=== PATIENT | male | born 1965 | race Caucasian/White ===

== ENCOUNTER 2023-02-10 14:00 | Outpatient (RCR) | payer OTHER, SELFPAY | END 2023-05-16 14:45 | disposition home or self-care (01) | PROVIDERS: PCP Family Medicine; Visit Provider Family Medicine | DX: M70.61 Trochanteric bursitis, right hip (principal); M54.16 Radiculopathy, lumbar region; M76.891 Other specified enthesopathies of right lower limb, excluding foot; Z51.89 Encounter for other specified aftercare | CPT/HCPCS: 97110; 97140; 97162 ==

== ENCOUNTER 2023-10-17 16:01 | Outpatient (CLI) | payer OTHER, SELFPAY | END 2023-10-17 16:02 | disposition home or self-care (01) | PROVIDERS: PCP Family Medicine; Visit Provider Family Medicine | DX: Z00.00 Encounter for general adult medical examination without abnormal findings (principal); I10 Essential (primary) hypertension; E78.2 Mixed hyperlipidemia; Q98.4 Klinefelter syndrome, unspecified; Z12.5 Encounter for screening for malignant neoplasm of prostate | CPT/HCPCS: 80048; 80061; 84403; 84443; 84460; G0103 ==

== ENCOUNTER 2023-11-20 22:29 | Emergency (ER) | payer OTHER, SELFPAY ==
[2023-11-20 22:36] VITALS: BP 164/97; PULSE 94; RESP 20; TEMP 36.6; O2SAT 98; BMI 40.6
--- NOTE | 2023-11-20 22:43 | CRLHL7_ITS ---
For Patients: As a result of the Century Cures Act, medical imaging exams and procedure reports are released immediately into your electronic medical record. You may view this report before your referring provider. If you have questions, please contact your health care provider. INDICATION: Right wrist pain, fall. TECHNIQUE: Right wrist 3 views. Permanently recorded images are archived. COMPARISON: None. FINDINGS: No acute fracture or aggressive osseous lesion. Well corticated ossific density distal to the ulnar styloid, likely sequela of an old fracture or unfused accessory ossicle. Alignment is normal. The joint spaces are preserved. The soft tissues are unremarkable. IMPRESSION: No evidence of an acute bony abnormality. If there is pain at the anatomic snuffbox, recommend conservative management with reimaging in 7-10 days. Dictated by Jarrett Barrera MD @ 11/20/2023 11:13:07 PM (Electronically Signed)
--- NOTE | 2023-11-20 22:43 | CRLHL7_ITS ---
For Patients: As a result of the Century Cures Act, medical imaging exams and procedure reports are released immediately into your electronic medical record. You may view this report before your referring provider. If you have questions, please contact your health care provider. Indication: Fall with left shoulder pain Technique: Three views left shoulder Comparison: None Findings: Bones: Alignment is normal. No fractures or bone lesions. Joint spaces: Unremarkable. Soft tissues: Unremarkable. Impression: Negative. Dictated by Kianna Cavazos MD @ 11/20/2023 11:06:53 PM (Electronically Signed)
--- NOTE | 2023-11-20 22:44 | ED_ITS ---
HPI - Fall General Date Seen: 11/20/23 Chief Complaint: Fall/Minor Trauma Stated Complaint: fall, left shoulder pain Time Seen by Provider: 11/20/23 22:33 Source: patient Mode of arrival: ambulatory Limitations: no limitations History of Present Illness HPI Narrative: Patient is a 58-year-old male with no pertinent medical problems presenting to the emergency department for left shoulder and right wrist pain. 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 He denies left shoulder and continue to hold onto the handle with his right hand and this twisted his right wrist. Denies any other injuries. Denies hitting his head. He went home to see if you feel better but says the pain is not getting any better so he came back to be evaluated in the emergency department. Did take ibuprofen at home with some improvement. Is only able to lift his left shoulder up about 20? before pain starts. Denies any other concerns. Denies numbness. Related Data Home Medications Medication Instructions Recorded Confirmed nicotine (polacrilex) 4 mg gum mg PO 05/01/23 10/17/23 Previous Rx's Medication Instructions Recorded albuterol sulfate 90 mcg/actuation 2 inh inhalation Q4-6H PRN 10/19/23 aerosol inhaler shortness of breath or wheezing #8.5 grams atorvastatin 20 mg tablet 20 mg PO DAILY #90 tabs 10/19/23 lisinopril 5 mg tablet 5 mg PO DAILY #90 tabs 10/19/23 omeprazole 20 mg capsule,delayed 20 mg PO DAILY #90 caps 10/19/23 release sertraline 100 mg tablet 100 mg PO DAILY #90 tabs 10/19/23 sildenafil 100 mg tablet 100 mg PO DAILY PRN sexual 10/19/23 activity #10 tabs tamsulosin 0.4 mg capsule 0.4 mg PO DAILY #90 caps 10/19/23 testosterone cypionate 200 mg/mL 170 mg (0.85 mL) IM .Q10 Days #10 10/19/23 intramuscular oil mL Allergies Allergy/AdvReac Type Severity Reaction Status Date / Time amoxicillin [From Augmentin] Allergy Intermediate Hives Verified 10/23/23 09:50 aspirin Allergy Intermediate Hives Verified 10/23/23 09:50 clavulanic acid Allergy Intermediate Hives Verified 10/23/23 09:50 [From Augmentin] lactose Allergy Mild Rash Verified 10/23/23 09:52 Review of Systems Narrative: Pertinent systems reviewed and were negative PFSH PFS Medical History Environmental allergies ?Z91.09 - Other allergy status, other than to drugs and biological substances (ICD-10) RSV (respiratory syncytial virus infection) (10/14/23) ?B33.8 - Other specified viral diseases (ICD-10) Erectile dysfunction ?N52.9 - Male erectile dysfunction, unspecified (ICD-10) Primary hypertension ?I10 - Essential (primary) hypertension (ICD-10) BPH (benign prostatic hyperplasia) ?N40.0 - Benign prostatic hyperplasia without lower urinary tract symptoms (ICD-10) Polycystic kidney disease ?Q61.3 - Polycystic kidney, unspecified (ICD-10) Tobacco abuse ?Z72.0 - Tobacco use (ICD-10) Major depression, recurrent ?F33.9 - Major depressive disorder, recurrent, unspecified (ICD-10) Generalized anxiety disorder ?F41.1 - Generalized anxiety disorder (ICD-10) Mixed hyperlipidemia ?E78.2 - Mixed hyperlipidemia (ICD-10) GERD (gastroesophageal reflux disease) ?K21.9 - Gastro-esophageal reflux disease without esophagitis (ICD-10) History of colonic polyps ?Z86.010 - Personal history of colonic polyps (ICD-10) Varicose veins of both lower extremities with pain ?I83.813 - Varicose veins of bilateral lower extremities with pain (ICD-10) Umbilical hernia (2015) ?K42.9 - Umbilical hernia without obstruction or gangrene (ICD-10) Klinefelter's syndrome ?Q98.4 - Klinefelter syndrome, unspecified (ICD-10) Surgical History History of surgery on lower extremity (04/25/17) ?Z98.890 - Other specified postprocedural states (ICD-10) Family History Father Heart disease Myocardial infarction Bladder cancer Paternal Grandfather Bladder cancer Other Family history of colon cancer 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[employer], , no kids, smoker, chews, no EtOH What is your current living situation?: I presently have a place to live Problems where you live: mold, lead paint or pipes and water leaks In the past 12 months, utilities in danger of being shut off: no In past 12 months, lack of transportation kept you from medical appts, meetings, work, or getting things needed for daily living: no In the past 12 mos, have been you worried that your food would run out before you had money to buy more?: never true In the past 12 mos, the food you bought just didn't last and you didn't have money to buy more?: sometimes true Smoking Status: Never smoker Second hand tobacco smoke exposure: No How often do you have a drink containing alcohol: never AUDIT-C Alcohol total score: 0 Non-prescribed substance use: denies use How often does anyone, including family, friends and others, physically hurt you : never How often does anyone, including family, friends and others, insult or talk down to you: sometimes How often does anyone, including family, friends and others, threaten you with harm: never How often does anyone, including family, friends and others, scream or curse at you: sometimes Little interest or pleasure in doing things: not at all Feeling down, depressed, or hopeless: not at all Exam Narrative: Exam Narrative: Const: Well-nourished, Well-developed, in mild distress Eyes: PERRL, no conjunctival injection, and symmetrical lids HENT: Atraumatic external nose and ears. Moist mucous membranes. MSK:Extremities w/o deformity, decreased active range of motion and passive range of motion to left shoulder secondary to pain. Full range of motion to right wrist and rest of his extremities Skin: Warm, Dry. No rashes or lesions. Neuro: Normal Muscle tone, No focal neurological deficits. Psych: Awake, Alert, & Oriented x3. Appropriate mood and affect. Const: Vital Signs, click to edit/add: Vital Signs - 24 hr 11/20/23 22:36 Temperature 97.9 F Pulse Rate [Pulse Oximeter] 94 Respiratory Rate 20 Blood Pressure [Ri ght Upper Arm] 164/97 H Pulse Oximetry 98 Oxygen Delivery Me thod Room Air Course Vital Signs Vital signs: Initial Vital Signs Temperature 97.9 F 11/20/23 22:36 Temperature Source Temporal Artery Scan 11/20/23 22:36 Pulse Rate 94 11/20/23 22:36 Respiratory Rate 20 11/20/23 22:36 Blood Pressure 164/97 H 11/20/23 22:36 Blood Pressure Mean 119 H 11/20/23 22:36 Blood Pressure Position Sitting 11/20/23 22:36 Pulse Oximetry 98 11/20/23 22:36 Oxygen Delivery Method Room Air 11/20/23 22:36 Vital Signs Temperature 97.9 F 11/20/23 22:36 Pulse Rate 94 11/20/23 22:36 Respiratory Rate 20 11/20/23 22:36 Blood Pressure 164/97 H 11/20/23 22:36 Pulse Oximetry 98 11/20/23 22:36 Oxygen Delivery Method Room Air 11/20/23 22:36 Temperature 97.9 F 11/20/23 22:36 Pulse Rate 94 11/20/23 22:36 Respiratory Rate 20 11/20/23 22:36 Blood Pressure 164/97 H 11/20/23 22:36 Pulse Oximetry 98 11/20/23 22:36 Oxygen Delivery Method Room Air 11/20/23 22:36 MDM - Fall MDM Narrative Medical decision making narrative: Patient is a 58-year-old male presenting to the emergency department after injury here at work. Is complaining male left shoulder and right wrist pain. We will order x-rays of these areas is not requesting pain medication at this t daniel. X-rays were done and showed no concerning abnormalities as reviewed by myself and the radiologist. Symptoms are most likely due to a muscle strain. There is no tenderness at the anatomical snuffbox. Patient is otherwise doing walking discharged home. He is agreeable to this plan Imaging Data X-ray left shoulder: Radiologist's impression: Negative. Dictated by Kianna Cavazos MD @ 11/20/2023 11:06:53 PM X-ray right wrist: Radiologist's impression: No evidence of an acute bony abnormality. If there is pain at the anatomic snuffbox, recommend conservative management with reimaging in 7-10 days. Dictated by Jarrett Barrera MD @ 11/20/2023 11:13:07 PM Discharge Plan Discharge Clinical Impression: Left shoulder strain Qualifiers: Encounter type: initial encounter Qualified Code(s): S46.912A - Strain of unspecified muscle, fascia and tendon at shoulder and upper arm level, left arm, initial encounter Patient Disposition: Home, Self-Care Condition: Stable Instructions: Rotator Cuff Injury Exercises (DC) Additional Instructions: Follow-up with your primary care provider. Return to emergency department for new or worsening symptoms. Use Tylenol and ibuprofen for pain Prescriptions: No Action nicotine (polacrilex) 4 mg gum PO albuterol sulfate 90 mcg/actuation HFA aerosol inhaler 2 inh inhalation Q4-6H PRN (Reason: shortness of breath or wheezing) Qty: 8.5 5RF atorvastatin 20 mg tablet 20 mg PO DAILY Qty: 90 3RF tamsulosin 0.4 mg capsule 0.4 mg PO DAILY Qty: 90 3RF sertraline 100 mg tablet 100 mg PO DAILY Qty: 90 3RF lisinopril 5 mg tablet 5 mg PO DAILY Qty: 90 3RF omeprazole 20 mg capsule,delayed release(DR/EC) 20 mg PO DAILY Qty: 90 3RF sildenafil 100 mg tablet 100 mg PO DAILY PRN (Reason: sexual activity) Qty: 10 5RF testosterone cypionate 200 mg/mL oil 170 mg IM .Q10 Days Qty: 10 3RF Follow Up/Referrals: Ryder Koenig MD [Primary Care Provider] - Stand Alone Forms: [employer] Info Instructions
[2023-11-20 23:25] VITALS: BP 164/97; PULSE 94; RESP 20; TEMP 36.6; O2SAT 98
== END 2023-11-20 23:43 | disposition home or self-care (01) ==
PROVIDERS: Emergency Provider Student in an Organized Health Care Education/Training Program; PCP Family Medicine
DX: S46.912A Strain of unspecified muscle, fascia and tendon at shoulder and upper arm level, left arm, initial encounter (principal)
CPT/HCPCS: 73030; 73110; 99282; 99283

== ENCOUNTER 2023-12-07 11:14 | Emergency (ER) | payer OTHER, SELFPAY ==
[2023-12-07 11:25] VITALS: BP 160/93; PULSE 103; RESP 18; TEMP 36.9; O2SAT 95; BMI 40.6
--- NOTE | 2023-12-07 11:30 | ED.GENADULT ---
HPI - General Adult General Time Seen by Provider: 11:33 Date Seen: 12/07/23 Chief complaint: Dizziness/Vertigo Stated complaint: dizziness Time Seen by Provider: 12/07/23 11:18 Source: patient, RN notes reviewed and old records reviewed Mode of arrival: ambulatory Limitations: no limitations History of Present Illness HPI narrative: Faustino is a 58-year-old male coming in with dizziness for about a week now. He had a bad headache when night, used a massage done on his neck and then went to bed. The next morning he woke up feeling dizzy. Describes spinning sensation whenever he lies back or turns his head to either side. He describes feeling imbalanced. He feels like his vision is blurry in both eyes. He states he worked with his chiropractor but denies any manipulations or adjustments. He has been trying meclizine. His headache is improved. No chest pain. No focal weakness. He does state he has a visit with his eye doctor tomorrow for testing of his eyes. He is described both blurry and double vision to me, the double vision seems to come when he lies down and gets spinning sensation. It sounds as if he is getting a dizzy sensation as well as a spinning sensation when he lies back or turns his head. He thinks he may have done something with the massage done. He denies any neck pain currently. He has never had a prior history of stroke or vascular issues. He has had no falls because of this. Denies any history of prior vertigo. He was seen in clinic on December [address] Ch. He had had symptoms for 3 days at that visit. He was given meclizine 25 mg daily for 7 days. Related Data Home Medications Medication Instructions Recorded Confirmed nicotine (polacrilex) 4 mg gum mg PO 05/01/23 12/06/23 ibuprofen 200 mg tablet 800 mg PO Q6H PRN 11/28/23 12/06/23 Previous Rx's Medication Instructions Recorded albuterol sulfate 90 mcg/actuation 2 inh inhalation Q4-6H PRN 10/19/23 aerosol inhaler shortness of breath or wheezing #8.5 grams atorvastatin 20 mg tablet 20 mg PO DAILY #90 tabs 10/19/23 lisinopril 5 mg tablet 5 mg PO DAILY #90 tabs 10/19/23 omeprazole 20 mg capsule,delayed 20 mg PO DAILY #90 caps 10/19/23 release sertraline 100 mg tablet 100 mg PO DAILY #90 tabs 10/19/23 sildenafil 100 mg tablet 100 mg PO DAILY PRN sexual 10/19/23 activity #10 tabs tamsulosin 0.4 mg capsule 0.4 mg PO DAILY #90 caps 10/19/23 testosterone cypionate 200 mg/mL 170 mg (0.85 mL) IM .Q10 Days #10 10/19/23 intramuscular oil mL oxycodone 5 mg tablet 5 mg PO Q6H PRN pain #20 tabs 11/28/23 meclizine 25 mg tablet 25 mg PO QDAY PRN dizziness #7 tabs 12/03/23 diazepam 5 mg tablet (Valium) 5 mg PO QHS #5 tabs 12/07/23 meclizine 25 mg tablet 25 mg PO TID #20 tabs 12/07/23 prednisone 20 mg tablet 20 mg PO DAILY #5 tabs 12/07/23 Allergies Allergy/AdvReac Type Severity Reaction Status Date / Time amoxicillin [From Augmentin] Allergy Intermediate Hives Verified 12/06/23 13:22 aspirin Allergy Intermediate Hives Verified 12/06/23 13:22 clavulanic acid Allergy Intermediate Hives Verified 12/06/23 13:22 [From Augmentin] lactose Allergy Mild Rash Verified 12/06/23 13:22 Review of Systems Status of ROS: Reports: 6 or more systems reviewed and unremarkable except as noted in History and below [facility] Medical History Environmental allergies ?Z91.09 - Other allergy status, other than to drugs and biological substances (ICD-10) RSV (respiratory syncytial virus infection) (10/14/23) ?B33.8 - Other specified viral diseases (ICD-10) Erectile dysfunction ?N52.9 - Male erectile dysfunction, unspecified (ICD-10) Primary hypertension ?I10 - Essential (primary) hypertension (ICD-10) BPH (benign prostatic hyperplasia) ?N40.0 - Benign prostatic hyperplasia without lower urinary tract symptoms (ICD-10) Polycystic kidney disease ?Q61.3 - Polycystic kidney, unspecified (ICD-10) Tobacco abuse ?Z72.0 - Tobacco use (ICD-10) Major depression, recurrent ?F33.9 - Major depressive disorder, recurrent, unspecified (ICD-10) Generalized anxiety disorder ?F41.1 - Generalized anxiety disorder (ICD-10) Mixed hyperlipidemia ?E78.2 - Mixed hyperlipidemia (ICD-10) GERD (gastroesophageal reflux disease) ?K21.9 - Gastro-esophageal reflux disease without esophagitis (ICD-10) History of colonic polyps ?Z86.010 - Personal history of colonic polyps (ICD-10) Varicose veins of both lower extremities with pain ?I83.813 - Varicose veins of bilateral lower extremities with pain (ICD-10) Umbilical hernia (2015) ?K42.9 - Umbilical hernia without obstruction or gangrene (ICD-10) Klinefelter's syndrome ?Q98.4 - Klinefelter syndrome, unspecified (ICD-10) Surgical History History of surgery on lower extremity (04/25/17) ?Z98.890 - Other specified postprocedural states (ICD-10) Family History Father Heart disease Myocardial infarction Bladder cancer Paternal Grandfather Bladder cancer Other Family history of colon cancer Social History Narrative: [employer] [facility], , no kids, smoker, chews, no EtOH What is your current living situation?: I presently have a place to live Problems where you live: mold, lead paint or pipes and water leaks In the past 12 months, utilities in danger of being shut off: no In past 12 months, lack of transportation kept you from medical appts, meetings, work, or getting things needed for daily living: no In the past 12 mos, have been you worried that your food would run out before you had money to buy more?: never true In the past 12 mos, the food you bought just didn't last and you didn't have money to buy more?: sometimes true Smoking Status: Never smoker Second hand tobacco smoke exposure: No How often do you have a drink containing alcohol: never AUDIT-C Alcohol total score: 0 Non-prescribed substance use: denies use How often does anyone, including family, friends and others, physically hurt you: never How often does anyone, including family, friends and others, insult or talk down to you: sometimes How often does anyone, including family, friends and others, threaten you with harm: never How often does anyone, including family, friends and others, scream or curse at you: sometimes Little interest or pleasure in doing things: not at all Feeling down, depressed, or hopeless: not at all Exam Const: Vital Signs, click to edit/add: Vital Signs - 24 hr 12/07/23 11:25 12/07/23 11:36 Temperature 98.5 F Pulse Rate [Right Pulse Oximeter] 103 H Respiratory Rate 18 Blood Pressure [Ri ght Upper Arm] 160/93 H Pulse Oximetry 95 98 Oxygen Delivery Me thod Room Air 58-year-old male is ambulatory into the ED of his own accord, gait normal. Pupils equal round reactive to light, sclera clear, extraocular muscles intact, note no significant nystagmus. Symmetrical facial function, speech is normal. Patient is wearing glasses. Neck thick but supple, no adenopathy or masses. Lungs are clear, good air entry, no wheezing or crackles. CV regular rate and rhythm, no murmur, normal S1-S2, no S3-S4. Who abdomen obese but soft. No lower extremity edema. He has normal rapid alternating fingers, normal [id number]. Strength is 5/5 and symmetric in upper and lower extremities. No baseline tremors noted. He has normal heel to byers. Sensation seems to be normal throughout. Documenting provider has reviewed patient's vital signs: yes Course Course ED Course: Patient is worried that he has done something within his head or neck with the massage machine. We will proceed with CTA of head neck, he most definitely has vertigo symptoms but seems to be trying to describe some lightheadedness or dizziness outside of this. Will have him on cardiac monitoring and pulse oximetry here to follow his rhythm. Will get EKG, baseline labs. He will obviously be having plain head CT as well. Reevaluation(s) Time of Reevaluation #1: 14:28 Reevaluation #1: Have reviewed with patient my conversation with the neurologist. We reviewed vestibular neuritis. We reviewed medication management. He was wondering if the aneurysm was the results or cause of his vertigo. We reviewed that it is not the cause of his vertigo. We discussed that the aneurysm is an incidental finding but is important to know, needs to be monitored and followed. We briefly discussed risk factors and her recommended reduction of these. I did specifically discuss smoking cessation with him, he can take this up further with his primary. Consultations Consultation #1: Did speak with Stroke Neurology on-call Dr. Ng. 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 He states this is a common area, would not do anything further at this point. He states that he could follow-up with [facility] in have monitoring done yearly with a repeat CTA. Reviewed with him that his primary care was Dr. Ch, he certainly can order this yearly and if it is increasing in size, can be referred on. He believes he probably has vestibular neuritis given symptoms have been present for a week. Will increase the meclizine to 3 times a day. He recommended prednisone 20 mg daily for 5 days. Will use Valium 5 mg at bedtime. Time: 14:20 Vital Signs Vital signs: Initial Vital Signs Temperature 98.5 F 12/07/23 11:25 Temperature Source Temporal Artery Scan 12/07/23 11:25 Pulse Rate 103 H 12/07/23 11:25 Respiratory Rate 18 12/07/23 11:25 Blood Pressure 160/93 H 12/07/23 11:25 Blood Pressure Mean 115 H 12/07/23 11:25 Blood Pressure Position Sitting 12/07/23 11:25 Pulse Oximetry 95 12/07/23 11:25 Oxygen Delivery Method Room Air 12/07/23 11:25 Vital Signs Temperature 98.5 F 12/07/23 11:25 Pulse Rate 103 H 12/07/23 11:25 Respiratory Rate 18 12/07/23 11:25 Blood Pressure 160/93 H 12/07/23 11:25 Pulse Oximetry 95 12/07/23 11:25 Oxygen Delivery Method Room Air 12/07/23 11:25 Temperature 98.5 F 12/07/23 11:25 Pulse Rate 103 H 12/07/23 11:25 Respiratory Rate 18 12/07/23 11:25 Blood Pressure 160/93 H 12/07/23 11:25 Pulse Oximetry 98 12/07/23 11:36 Oxygen Delivery Method Room Air 12/07/23 11:25 Medical Decision Making Lab Data Lab results reviewed: Yes I reviewed the patient's lab results Labs: Lab Results 12/07/23 Range/Units 12:05 WBC 7.14 (4.50-11.00) K/uL RBC 5.69 (4.30-5.90) m/uL Hgb 17.5 (13.5-17.5) gm/dL Hct 52.6 (37.0-53.0) % MCV 92 (80-100) fL MCH 31 (26-34) pg MCHC 33 (32-36) gm/dL RDW Coeff of Lai 12.8 (11.5-15.5) % Plt Count 219 (140-440) K/uL Neut % (Auto) 51.2 (42.0-72.0) % Lymph % (Auto) 33.8 (20-44) % [place] % (Auto) 10.8 (0.0-11.0) % Eos % (Auto) 3.5 (0.0-7.0) % Baso % (Auto) 0.6 (0.0-3.0) % Neut # (Auto) 3.66 (1.7-7.0) K/uL Lymph # (Auto) 2.41 (0.90-2.90) K/uL [place] # (Auto) 0.80 (0.00-0.90) K/UL Eos # (Auto) 0.25 (0.00-0.50) K/uL Baso # (Auto) 0.04 (0.00-0.30) K/uL Abs Immat Gran (auto) 0.01 (0.00-0.30) K/uL Imm/Tot Granulo (auto) 0.1 % Sodium 137 (135-149) mmol/L Potassium 3.7 (3.6-5.1) mmol/L Chloride 100 (96-114) mmol/L Carbon Dioxide 30 (20-32) mmol/L Anion Gap 7 (7-15) mEq/L BUN 18 (7-30) mg/dL Creatinine 0.7 (0.5-1.5) mg/dL Estimated Creat Clear 140.83 Estimated GFR 108 ml/min Glucose 148 H (60-115) mg/dL Calcium 8.9 (8.4-10.6) mg/dL Magnesium 2.0 (1.5-2.6) mg/dL Total Bilirubin 0.8 (0.1-1.5) mg/dL AST 28 (12-35) U/L ALT 39 (4-50) U/L Alkaline Phosphatase 95 (40-150) U/L C-Reactive Protein < 0.5 L (0.5-1.0) mg/dL Total Protein 7.3 (6.0-8.3) g/dL Albumin 4.3 (3.3-5.0) g/dL Imaging Data CT scan - head: Attestation: I have reviewed the pertinent imaging results. Radiologist's impression: Patient: AMAURI KING Facility:?[facility] Patient ID:?[id number] Site Patient ID:?[id number]. Site :?1965 Study:?CT Head w/o-12/07/2023 12:16:50 PM Ordering Physician:Aric Munson Final Report: Indication: Vertigo, unsteady gait Technique: CT head without contrast. Multiplanar reformats are included. Please note that all CT scans at this facility use dose modulation, iterative reconstruction, and/or weight-based dosing when appropriate to reduce radiation dose to as low as reasonably achievable. Comparison: None Findings: Normal lucas-white matter differentiation. Normal parenchymal volume. No intracranial hemorrhage. No mass or mass effect. The ventricles and subarachnoid spaces are normal. No focal bone lesion or calvarial fracture. The mastoids and middle ears are well aerated and clear. Impression: Normal head CT. Please note that all CT scans at this facility use dose modulation, iterative reconstruction, and/or weight-based dosing when appropriate to reduce radiation dose to as low as reasonably achievable. Dictated by Nelli David MD @ 12/07/2023 12:36:43 PM (Electronic Signature) CT angio head and neck: Attestation: I have reviewed the pertinent imaging results. Radiologist's impression: Patient: AMAURI KING Facility:?[facility] Patient ID:?[id number] Site Patient ID:?[id number]. Site :?1965 Study:?CT Head Angio w/ 95cc [id number]/25/2024 12:17:53 PM Ordering Physician:?Amauri Munson Preliminary Report: 1. No large vessel occlusion or significant arterial stenosis. 2. 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 Read by:?Andrei Cruz MD @ 12/07/2023 13:54:59 ECG Data Attestation: I personally reviewed and interpreted this ECG as follows: (Normal sinus rhythm, 93 beats per minute. No active ischemia. QT corrected 415 milliseconds.) Prior ECG tracings: available for review (No significant change.) Discharge Plan Discharge Clinical Impression: Aneurysm, cerebral, nonruptured Acute vestibular neuritis Qualifiers: Laterality: unspecified laterality Qualified Code(s): H81.20 - Vestibular neuronitis, unspecified ear Patient Disposition: Home, Self-Care Condition: Stable Instructions: Vertigo (ED) Additional Instructions: Recommend follow up in clinic this week, do recommend having further blood work done for diabetes (hemoglobin A1C) done. Keep the clinic visit with your eye doctor. When you follow-up with your primary provider, he can schedule a repeat head CT angiogram for 1 year's time for monitoring of the posterior communicating artery aneurysm. This is small at this time. As we discussed, risk factor modification is recommended, review this further at your visit. You are likely to have symptoms maybe for about a week as far as the vertigo. Hopefully the medicines will help this resolve. The small aneurysm found is not felt to be causing the current symptoms of the vertigo. Activity Level: Activity as Tolerated Prescriptions: New meclizine 25 mg tablet 25 mg PO TID Qty: 20 0RF prednisone 20 mg tablet 20 mg PO DAILY Qty: 5 0RF diazepam [Valium] 5 mg tablet 5 mg PO QHS Qty: 5 0RF No Action nicotine (polacrilex) 4 mg gum PO ibuprofen 200 mg tablet 800 mg PO Q6H PRN oxycodone 5 mg tablet 5 mg PO Q6H PRN (Reason: pain) Qty: 20 0RF meclizine 25 mg tablet 25 mg PO QDAY PRN (Reason: dizziness) Qty: 7 0RF albuterol sulfate 90 mcg/actuation HFA aerosol inhaler 2 inh inhalation Q4-6H PRN (Reason: shortness of breath or wheezing) Qty: 8.5 5RF atorvastatin 20 mg tablet 20 mg PO DAILY Qty: 90 3RF tamsulosin 0.4 mg capsule 0.4 mg PO DAILY Qty: 90 3RF sertraline 100 mg tablet 100 mg PO DAILY Qty: 90 3RF lisinopril 5 mg tablet 5 mg PO DAILY Qty: 90 3RF omeprazole 20 mg capsule,delayed release(DR/EC) 20 mg PO DAILY Qty: 90 3RF sildenafil 100 mg tablet 100 mg PO DAILY PRN (Reason: sexual activity) Qty: 10 5RF testosterone cypionate 200 mg/mL oil 170 mg IM .Q10 Days Qty: 10 3RF Follow Up/Referrals: Ryder Koenig MD [Primary Care Provider] - Stand Alone Forms: [employer] Info Instructions
[2023-12-07 11:36] VITALS: O2SAT 98
--- NOTE | 2023-12-07 11:55 | CT_ITS ---
Patient: AMAURI KING Facility:?[facility] Patient ID:?[id number] Site Patient ID:?[id number]. Site :?1965 Study:?CT-Head Angio w/ 95cc [id number]/25/2024 12:17:53 PM Ordering Physician:Aric Munson Final Report: CLINICAL HISTORY: Vertigo; unsteady gait. TECHNIQUE: Standard helical CT image acquisition through the head following the administration of intravenous contrast was performed. 3D and MIP reconstructions were performed at a separate workstation and permanently archived. COMPARISON: None available. FINDINGS: No intracranial proximal large vessel occlusion or flow-limiting luminal stenosis. No evidence of cerebral aneurysm. No findings to suggest an arterial-venous shunting lesion. The major dural venous sinuses and deep venous system are patent. IMPRESSION: No intracranial proximal large vessel occlusion, flow-limiting luminal stenosis, or cerebral aneurysm. Please note that all CT scans at this facility use dose modulation, iterative reconstruction, and/or weight-based dosing when appropriate to reduce radiation dose to as low as reasonably achievable. Dictated by Suhail Price MD @ 12/08/2023 8:42:01 AM Signed by:?Suhail Price MD @12/08/2023 8:42:01 AM (Electronic Signature)
--- NOTE | 2023-12-07 11:55 | CT_ITS ---
Patient: AMAURI KING Facility:?[facility] Patient ID:?[id number] Site Patient ID:?[id number]. Site :?1965 Study:?CT-Neck Angio Angio w/ 95cc [id number]/25/2024 12:17:58 PM Ordering Physician:?Amauri Munson Final Report: CLINICAL HISTORY: Vertigo; unsteady gait. TECHNIQUE: Standard helical CT image acquisition through the neck was performed after intravenous contrast bolus enhancement. 3D and MIP reconstructions were performed at a separate workstation and permanently archived. COMPARISON: None available. FINDINGS: The origins of the great vessels from the aortic arch are patent. The common carotid arteries are patent. No significant luminal stenoses of the proximal ICAs by NASCET criteria. The more distal cervical segments of the ICAs are patent. The origins and cervical segments of the vertebral arteries are patent. IMPRESSION: Patent cervical arterial vasculature without hemodynamically significant luminal stenosis. Please note that all CT scans at this facility use dose modulation, iterative reconstruction, and/or weight-based dosing when appropriate to reduce radiation dose to as low as reasonably achievable. Dictated by Suhail Price MD @ 12/08/2023 8:41:03 AM Signed by:?Suhail Price MD @12/08/2023 8:41:03 AM (Electronic Signature)
--- NOTE | 2023-12-07 11:56 | CT_ITS ---
Patient: AMAURI KING Facility:?[facility] Patient ID:?[id number] Site Patient ID:?[id number]. Site :?1965 Study:?CT-Head w/o-12/07/2023 12:16:50 PM Ordering Physician:Aric Munson Final Report: Indication: Vertigo, unsteady gait Technique: CT head without contrast. Multiplanar reformats are included. Please note that all CT scans at this facility use dose modulation, iterative reconstruction, and/or weight-based dosing when appropriate to reduce radiation dose to as low as reasonably achievable. Comparison: None Findings: Normal lucas-white matter differentiation. Normal parenchymal volume. No intracranial hemorrhage. No mass or mass effect. The ventricles and subarachnoid spaces are normal. No focal bone lesion or calvarial fracture. The mastoids and middle ears are well aerated and clear. Impression: Normal head CT. Please note that all CT scans at this facility use dose modulation, iterative reconstruction, and/or weight-based dosing when appropriate to reduce radiation dose to as low as reasonably achievable. Dictated by Nelli David MD @ 12/07/2023 12:36:43 PM Signed by:?Nelli David MD @12/07/2023 12:36:43 PM (Electronic Signature)
[2023-12-07 12:20] LABS: Basophils Absolute Auto 0.04 K/uL (0.00-0.30); Basophils Percent Auto 0.6 % (0.0-3.0); Eosinophils Absolute Auto 0.25 K/uL (0.00-0.50); Eosinophils Percent Auto 3.5 % (0.0-7.0); Hematocrit 52.6 % (37.0-53.0); Hemoglobin* 17.5 gm/dL (13.5-17.5); Immature Granulocytes Abs Auto 0.01 K/uL (0.00-0.30); Immature Granulocytes Pct Auto 0.1 %; Lymphocytes Absolute Auto 2.41 K/uL (0.90-2.90); Lymphocytes Percent Auto 33.8 % (20-44); Mean Corpuscular HGB Conc 33 gm/dL (32-36); Mean Corpuscular Hemoglobin 31 pg (26-34); Mean Corpuscular Volume 92 fL (80-100); Monocytes Percent Auto 10.8 % (0.0-11.0); Neutrophils Absolute Auto 3.66 K/uL (1.7-7.0); Neutrophils Percent Auto 51.2 % (42.0-72.0); Platelet Count* 219 K/uL (140-440); RDW Coefficient of Variation % 12.8 % (11.5-15.5); Red Blood Count 5.69 m/uL (4.30-5.90); White Blood Count* 7.14 K/uL (4.50-11.00)
[2023-12-07 12:31] LABS: Slide Review Reflex No
[2023-12-07 12:34] LABS: Albumin* 4.3 g/dL (3.3-5.0); Chloride* 100 mmol/L (96-114); Sodium* 137 mmol/L (135-149)
[2023-12-07 12:35] LABS: Potassium* 3.7 mmol/L (3.6-5.1)
[2023-12-07 12:37] LABS: Alanine Aminotransferase* 39 U/L (4-50); Alkaline Phosphatase* 95 U/L (40-150); Anion Gap 7 mEq/L (7-15); Aspartate Amino Transferase* 28 U/L (12-35); Bilirubin Total* 0.8 mg/dL (0.1-1.5); Blood Urea Nitrogen* 18 mg/dL (7-30); Carbon Dioxide* 30 mmol/L (20-32); Creatinine* 0.7 mg/dL (0.5-1.5); Est. Creatinine Clearance* 140.83; Estimated Glomerular Filt Rate 108 ml/min; Glucose* 148 mg/dL (60-115); Total Protein* 7.3 g/dL (6.0-8.3)
[2023-12-07 12:38] LABS: Calcium* 8.9 mg/dL (8.4-10.6)
[2023-12-07 12:47] LABS: C Reactive Protein* < 0.5 mg/dL (0.5-1.0)
== END 2023-12-07 14:44 | disposition home or self-care (01) ==
PROVIDERS: Emergency Provider Family Medicine; PCP Family Medicine
DX: H81.23 Vestibular neuronitis, bilateral (principal)
CPT/HCPCS: 36415; 70450; 70496; 70498; 80053; 83735; 85025; 86140; 93005; 94761; 99284; 99285; Q9967

== ENCOUNTER 2023-12-24 13:56 | Outpatient (CLI) | payer OTHER, SELFPAY ==
--- NOTE | 2023-12-24 14:30 | MR_ITS ---
[address] [address] Phone:?[phone] Fax:?[phone] Referring Physician Information: Carl Burch M.D. [id number] [address] Phone:?[phone] Fax:?[phone] Patient:Aric Muñiz D.O.B:?1965 Sex:?Male Phone:?[phone] [facility] MRN:?[id number] Exam Date:?12/24/2023 EXAM: MRI of the LEFT SHOULDER, without contrast CLINICAL HISTORY: Unspecified rotator cuff tear or rupture of the left shoulder. Suspect rotator cuff tear. COMPARISONS: Plain radiographs 11/20/2023. TECHNICAL: MRI sequences of the left shoulder: Axials: PD, T2 Coronals: PD, STIR, T2 Sagittals: PD, T2 SEDATION: None CONTRAST: None FINDINGS: Bones: No fracture or destructive osseous lesion is seen. Coracoacromial arch: Acromion: No os acromiale. Type I-II acromion. Acromiohumeral space: The bony distance is unremarkable. Acromioclavicular joint: There is ill-defined partial tearing of the superior portion of the acromioclavicular ligament.. There is no widening of the acromioclavicular joint. Coracoclavicular ligament: The coracoclavicular ligament is intact. There is no superior subluxation of the distal clavicle. Rotator cuff muscles/tendons: Supraspinatus: There is a tiny 3 x 3 mm concealed intrasubstance tear within the supraspinatus tendon insertional footprint with 2-3 mm of retraction of torn tendon fibers from the cortical insertional surface superimposed upon interstitial delamination and mild to moderate tendinopathy of the supraspinatus tendon. No muscular atrophy. Infraspinatus: Interstitial delamination within and mild tendinopathy of the infraspinatus tendon. No muscular atrophy. Teres minor: The teres minor tendon and muscle are intact. Subscapularis: Mild tendinopathy. No muscular atrophy. Labrum and glenohumeral joint: No evidence of labral tear although evaluation is suboptimal because of nonarthrogram technique. Physiologic amount of joint fluid. There is a 5 x 5 mm focus of grade IV chondromalacia over the posterosuperior portion the glenoid with subjacent subchondral cystic change. No convincing evidence of capsular edema or thickening although evaluation is suboptimal because of lack of joint distention. Proximal biceps tendon, long head and short heads: The long and short heads of the proximal biceps tendon are intact. Bursae: Subacromial/subdeltoid: Slight bursitis. Subcoracoid: No convincing subcoracoid bursal thickening/bursitis. IMPRESSION: 1. Tiny 3 x 3 mm concealed intrasubstance tear within the supraspinatus tendon insertional footprint with 2-3 mm of retraction of torn tendon fibers from the cortical insertional surface superimposed upon interstitial delamination and mild to moderate tendinopathy of the supraspinatus tendon. 2. Interstitial delamination within and mild tendinopathy of the infraspinatus tendon. 3. Mild subscapularis tendinopathy. 4. No articular or bursal surfacing rotator cuff tendon tear or rotator cuff muscular atrophy. 5. Ill-defined partial tearing of the superior portion of the acromioclavicular ligament. Correlate with any point tenderness and clinical signs and symptoms. No widening of the acromioclavicular joint. Intact coracoclavicular ligament without superior subluxation of the distal clavicle. 6. 5 x 5 mm focus of grade IV chondromalacia over the posterosuperior portion of the glenoid with subjacent subchondral cystic change. 7. Slight subacromial/subdeltoid bursitis. 8. Intact biceps tendon. RCB Electronically signed on 12/25/2023 6:37:00 AM by Brady Vela M.D.
== END 2023-12-24 13:57 | disposition home or self-care (01) ==
LOC: MRI 13:56
PROVIDERS: PCP Family Medicine; Visit Provider Orthopaedic Surgery Sports Medicine
DX: M75.102 Unspecified rotator cuff tear or rupture of left shoulder, not specified as traumatic (principal); S46.012A Strain of muscle(s) and tendon(s) of the rotator cuff of left shoulder, initial encounter; S43.52XA Sprain of left acromioclavicular joint, initial encounter; M94.212 Chondromalacia, left shoulder; M75.52 Bursitis of left shoulder
CPT/HCPCS: 73221

== ENCOUNTER 2024-01-01 13:00 | Outpatient (RCR) | payer OTHER, SELFPAY | END 2024-04-30 23:59 | disposition home or self-care (01) | PROVIDERS: PCP Family Medicine; Visit Provider Family Medicine | DX: S46.912A Strain of unspecified muscle, fascia and tendon at shoulder and upper arm level, left arm, initial encounter (principal); S43.52XA Sprain of left acromioclavicular joint, initial encounter; M75.102 Unspecified rotator cuff tear or rupture of left shoulder, not specified as traumatic; M25.512 Pain in left shoulder; R29.898 Other symptoms and signs involving the musculoskeletal system; Z51.89 Encounter for other specified aftercare | CPT/HCPCS: 97110; 97140; 97162 ==

== ENCOUNTER 2024-08-11 15:05 | Outpatient (CLI) | payer OTHER, SELFPAY | END 2024-08-11 15:06 | disposition home or self-care (01) | PROVIDERS: PCP Internal Medicine; Visit Provider Internal Medicine | DX: Z11.3 Encounter for screening for infections with a predominantly sexual mode of transmission (principal) | CPT/HCPCS: 86703; 87491; 87591 ==

== ENCOUNTER 2024-12-15 14:59 | Emergency (ER) | payer OTHER, SELFPAY ==
--- OUTSIDE RECORDS SUMMARY | 2024-12-15 15:01 | XMS_ITS | Clinical Summary ---
Author Organization [employer] [facility] Address [address] [place] [id number] Care Team Providers Care Shift Commander Name Role Phone Juan Downing MD Unavailable Rex Ch MD Primary Care Provider Allergies Active Allergy Reactions Criticality Noted Date Comments Aspirin Hives,GI Upset 07/06/2009 Amoxicillin-Pot Clavulanate Hives 05/28/20 16 Cats (Fur, Dander, Saliva) Hives 4 Lactose Rash 04/29/2023 boil Medications atorvastatin (LIPITOR) 20 mg tabletIndication s:Hyperlipidemia LDL goal <100 TAKE 1 TABLET(20 MG) BY MOUTH AT BEDTIME 90 Tablet 3 2 Active lisinopriL (PRINIVIL; ZESTRIL) 5 mg tabletIndication s:HTN (hypertension) TAKE 1 TABLET(5 MG) BY MOUTH EVERY DAY 90 Tablet 3 2 Active acyclovir (ZOVIRAX) 800 mg tabletIndication s:Herpes stomatitis TAKE ONE TABLET TWICE DAILY FOR 3 DAYS ONSET OF COLD SORE 24 Tablet 1 3 Active omeprazole (PRILOSEC) 20 mg Delayed-Release capsuleIndicatio ns:Heartburn TAKE 1 CAPSULE BY MOUTH EVERY DAY BEFORE A MEAL 90 Capsule 1 3 Active sertraline (ZOLOFT) 50 mg tabletIndication s:Recurrent major depressive disorder, remission status unspecified TAKE 1 TABLET(50 MG) BY MOUTH EVERY DAY 30 Tablet 3 Active tamsulosin (FLOMAX) 0.4 mg capsuleIndicatio ns:Slow urinary stream Take 1 Capsule (0.4 mg) by mouth once daily after a meal. 90 Capsule 1 3 Active nicotine (NICORETTE) 4 mg gumIndications:T obacco abuse disorder CHEW 1 GUM EVERY HOUR WHILE AWAKE NEEDED FOR NICOTINE CRAVING 100 Each 3 Active sildenafil citrate (VIAGRA) 100 mg tabletIndication s:Erectile dysfunction, unspecified erectile dysfunction type TAKE 1 TABLET BY MOUTH EVERY DAY NEEDED. 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 Overview (04/16/2018): Buccal noted on physical exam 07/2017 Biopsy March 2018 of right ant low lip-- Squamous acanthosis, hyperkeratosis and parakeratosis consistent with leukoplakia Morbid obesity with BMI of 40.0-44.9, adult 10/14 Hematuria, microscopic 05/28/2016 Personal history of colonic polyps 05/29/2015 Overview (05/29/2015): Colonoscopy 05/2015 normal repeat in 5 years Tobacco abuse 12/22/2014 Major depression, recurrent 03/12/2013 Prediabetes 08/04/2012 Hyperlipidemia LDL goal <100 08/04/2012 Elbow pain, right 03/12/2011 ADPKD (autosomal dominant polycystic kidney) Klinefelter's syndrome 07/06/2009 Resolved Problems Problem Noted Date Diagnosed Date Resolved Date Microhematuria 03/16/2013 07/30/2017 Umbilical bleeding 07/06/2009 3 Encounters Date Type Department Care Team Description 11/12/2024 Orders Only [facility] [address] [place] [address] Tammie Agustin 1 scan: (1-Ord) Zio 11/02/2024 Refill [facility] [address] [place], [place] [id number] Juan Downing MD Refill Request (Testosterone Cypionate) 10/19/2024 12:35 PM AUDIO INSTALLER Office Visit [facility] [address] [facility] [address] [place] [address] Juan Downing MD Follow Up (7 month follow up) 10/19/2024 Travel 10/14/2024 Telephone [facility] [address] [facility] [address] [facility] [address] [place] [address] Juan Downing MD Questions (medications, ) from Last 3 Months Immunizations Name Administration Dates Next Due COVID-19 vaccine (VIDTEQ [place] 30mcg/0.3mL) PF, MDV 01/10/2022,02/02/2021,01/09/2021 Hep B (Hepatitis B (Adult) Recombinant Adjuvanted) 04/10/2021,02/27/2021 Influenza Virus, Unspecified 07/21/2018, 11/06/2013,08/18/2010,2007 Influenza, IIV3 (Age 6-35 mos) 09/25/2014 Influenza, IIV3 (Age >=3 years) 07/15/2024,10/24 Influenza, IIV4 07/08/2023,,08/24/2019,2017,07/26/2017,07/17/2016 Influenza, IIV4 (=>6mos) MDV 07/11/2021,08/24/20 19,11/05/2013 Influenza,CCIIV4 PRESERV FREE 08/26/2020 Polio Virus, Unspecified 02/17/1980 Td (Age >=7 Years) 06/02/2003,03/27/2001 Td, Preservative Free (age > = 7 Years) 08/02/2008 Tdap 10/01/2022,09/12/2011 Family History Medical History Relation Name Comments Cancer Father bladder cancer Heart Disease Father [place] [facility] Mother Cancer Paternal Grandfather bladder cancer Relation Name Status Comments Father Alive Mother Alive Paternal Grandfather Sister 1 Alive Sister 2 Alive Social History Tobacco Use Types Packs/Day Years Used Date Smoking Tobacco: Every Day Cigarettes 0.3 46.2 Started: 10/13/1978 Smokeless Tobacco: Current Chew Tobacco Cessation:Ready to Q uit: No; Counseling Given: Yes Comments:vapor/gum Alcohol Use Standard Drinks/Week Comments No 0 (1 standard drink = 0.6 oz pur e alcohol) PHQ-2 Answer Date Recorded PHQ-2 TOTAL SCORE 0 10/01/2022 Financial Resource Strain Answer Date R ecorded Difficulty of Paying Living Expenses Not on file 10/03/2021 Difficulty of Paying Living Expenses Not on file 10/03/2021 Sex and Gender Information Value Date Recorded Sex Assigned at Not on file Legal Sex Male 5:58 AM AUDIO INSTALLER Gender Identity Not on file Sexual Orientation Not on file 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 Not on file Not on file Not on file Obstetrics History Last Filed Vital Signs Vital Sign Reading Time Taken Comments Blood Pressure 116/78 10/19/2024 12:10 PM AUDIO INSTALLER Pulse 76 10/19/2024 12:10 PM AUDIO INSTALLER Temperature 36.7 C (98.1 F) 06/30/2024 8:34 AM CDT Respiratory Rate 16 09/20/2020 11:2 6 AM AUDIO INSTALLER Oxygen Saturation 97% 06/30/2024 8:34 AM CDT Inhaled Oxygen Concentration - - Weight 147.4 kg (324 lb 14.4 oz) 2024 12:10 PM AUDIO INSTALLER Height 190.5 cm (6' 3) 04/29/2023 3:29 PM CDT Body Mass Index 40.61 04/29/2023 3:29 PM CDT Plan of Treatment Health Maintenance Due Date Last Done Comments HIV for age 15-65 1982 Hepatitis C screening for ag e 18-79 1985 Pneumococcal series for age 50+ (1 of 2 - PCV) 1986 Zoster (shingles) series for age 50+ (1 of 2) 2017 Depression screening for age 12+ 10/01/2023 10/01/2022, 09/29/2022, 08/24/2022, Additional history exists BMI (ht and wt on same day) for age 18+ 04/29/2024 04/29/2023, 10/01/2022, 09/27/2021, Additional history exists COVID-19 vaccine series ( season) 2024 07/10/2022, 01/10/2022, 02/02/2021, Additional history exists Colonoscopy through age 75 05/29/2025 05/29/2015, Lipids for age 45-75 10/01/2027 10/01/2022, 03/26/2021, 11/06/2019, Additional history exists Tetanus booster 10/01/2032 10/01/2022, 12/10/2010, 08/02/2008, Additional history exists Tdap Completed 10/01/2022, 09/12/2011 Influenza for age 50-64 Completed 07/15/20 24, 07/08/2023, 07/10/2022, Additional history exists Goals Goal Patient Goal Type Associated Problems Recent Progress Patient-Stated? Author BLOOD PRESSURE - Maintains BP less than 140/90 Blood Pressure No Mauricio Stahl MD Procedures Procedure Name Priority Date/Time Associated Diagnosis Comments EXTENDED HOLTER Routine 11/02/2024 Palpitations HEMOGLOBIN Routine 10/19/2024 12:33 PM AUDIO INSTALLER Hypogonadism male TESTOSTERONE,TOTAL Routine 10/19/2024 12 :33 PM AUDIO INSTALLER Hypogonadism male LIPID PANEL W REFLEX MEASURED LDL Routine 10/01/2022 2:49 PM AUDIO INSTALLER Hyperlipidemia LDL goal <100 SCAN-COLONOSCOPY 05/29/2015 12:0 0 PM CDT from Last 3 Months or Most Recently Relevant to Health Maintenance Results * EXTENDED HOLTER (11/02/2024) us Rex Ch MD CARDIAC SERVICES ORD Final R esult * (ABNORMAL) HEMOGLOBIN (10/19/2024 12:33 PM AUDIO INSTALLER) HEMOGLOBIN 19.2(H) 13.2 - 17.1 g/dL [facility] Blood BLOOD SPECIMEN / Unknown 10/19/2024 12:33 PM AUDIO INSTALLER 10/19/2024 12:34 PM AUDIO INSTALLER Narrative [facility] - 10/20/2024 4:30 AM AUDIO INSTALLER FASTING:NO FASTING: NO Juan Downing MD HEMATOLOGY Final Re sult [facility] [address] [place] [address], [place] [phone] [facility] [address] [place] [address] * TESTOSTERONE,TOTAL (10/19/2024 12:33 PM AUDIO INSTALLER) TESTOSTERONE, TOTAL, MS 691 250 - 1,100 ng/dL [facility] Comment: For additional information, please refer to https://education.Rapleaf/faq/TotalTestosteroneLCMSMS (This link is being provided for informational/educational purposes only.) (Note) This test was developed and its analytical performance characteristics have been determined by [facility]. It has not been cleared or approved by the FDA. This assay has been validated pursuant to the CLIA regulations and is used for clinical purposes. [facility] [address] [address],[address] [place] [address] Yeny Hudson MD, PhD Blood BLOOD SPECIMEN / Unknown 10/19/2024 12:33 PM AUDIO INSTALLER 10/19/2024 12:34 PM AUDIO INSTALLER Narrative [facility] - 10/22/2024 8:15 AM AUDIO INSTALLER FASTING:NO FASTING: NO Juan Downing MD CHEMISTRY Final Re sult [facility] [address] [address], [facility] [address] [address], [address] [place] [address] * (ABNORMAL) LIPID PANEL W REFLEX MEASURED LDL (10/01/2022 2:49 PM AUDIO INSTALLER) CHOLESTEROL,TOTAL 159 100 - 199 mg/dL 10/03/2022 6:08 PM AUDIO INSTALLER [facility] TRIGLYCERIDES 121 <150 mg/dL 10/03/2022 6:08 PM AUDIO INSTALLER [facility] HDL CHOLESTEROL 39(L) >40 mg/dL 6:08 PM AUDIO INSTALLER [facility] NON-HDL CHOLESTEROL 120 <145 mg/dl 10/03/2022 6:08 PM AUDIO INSTALLER [facility] CHOL/HDL RATIO 4.08 <4.50 10/03/2022 6:08 PM AUDIO INSTALLER [facility] LDL CHOLESTEROL 96 <=130 mg/dL 10/03/2022 6:08 PM AUDIO INSTALLER [facility] VLDL CHOLESTEROL 24 <=30 mg/dL 10/03/2022 6:08 PM AUDIO INSTALLER [facility] PROVIDER ORDERED STATUS RANDOM 10/03/2022 6:08 PM AUDIO INSTALLER [facility] Blood BLOOD SPECIMEN / Unknown Venipuncture / Unknown 10/01/2022 2:49 PM AUDIO INSTALLER 10/01/2022 2:49 PM AUDIO INSTALLER us Chandan Reddy MD CHEMISTRY Final Re sult [facility] [address] [place] [address], [place] * SCAN-COLONOSCOPY (05/29/2015 12:00 PM CDT) us Scanner OTHER Final Result from Last 3 Months or Most Recently Relevant to Health Maintenance Insurance [facility] [employer] [facility] Member Subscriber Plan / Payer (Ef fective 2020-Present) Name:Deshaun Muñiz Member ID:Not on file Relation to Subscriber:Self Name:Deshaun Muñiz Subscriber ID:Not on file Payer ID:Not on file Group ID:Not on file Type:Not on file Address: [facility] [employer] [facility] ATTN: ANA [place] [address] [address] [address] [facility] Member Subscriber Plan / Payer (Ef fective 2020-Present) Name:Deshaun Muñiz Member ID:Not on file Relation to Subscriber:Self Name:Deshaun Muñiz Subscriber ID:Not on file Payer ID:Not on file Group ID:Not on file Type:Not on file Address: [address] [employer] [facility] [address] ATTN: SIL MORA [address] [facility] Advance Directives * Full Code (Latest Code Status on File) Date Activated Date Inactivated Comments 04/25/2017 6:34 AM 04/25/2017 12:04 PM Care Teams Shift Commander Relationship Specialty Start Date End Date Rex Ch MD [address] [place] [address] PCP - General Internal Medicine 06/30/24 Juan Downing MD [address] [facility] [address] [place] [address] Endocrinology 01/07/23
[2024-12-15 15:15] VITALS: BP 116/83; PULSE 90; RESP 18; TEMP 36.5; O2SAT 93; BMI 39.9
--- NOTE | 2024-12-15 15:45 | CRLHL7_ITS ---
For Patients: As a result of the Cures Act, medical imaging exams and procedure reports are released immediately into your electronic medical record. You may view this report before your referring provider. If you have questions, please contact your health care provider. Indication: PAIN Technique: Three views of the right knee Comparison: None Findings/Impression: No acute fracture or malalignment. No significant knee joint effusion. Mild osteoarthritic degenerative changes of the medial and patellofemoral compartments with joint space narrowing and patellofemoral osteophyte formation. No suspicious osseous lesions. Os fabella. The soft tissues are unremarkable. Dictated by Conrad Gillespie MD @ 12/15/2024 4:30:25 PM (Electronically Signed)
--- NOTE | 2024-12-15 15:47 | ED_ITS ---
HPI - General Adult General Chief complaint: Extremity Pain/Injury, Lower Stated complaint: R leg stiffness Time Seen by Provider: 12/15/24 15:41 History of Present Illness HPI narrative: 59 year white male hospital play with sitting his bed last night and heard a cracking sensation in the proximal fibular area of his right knee, no obvious swelling, it has hurt to bend fully, but he is able to bend. He has had no significant trauma as mention. He is able to walk on it today. He went to the chiropractor and thought that it was his knee and ?fibular? area. Faustino has no swelling there. He does have a history of allergic reaction aspirin. He reports that he would do a knee immobilizer but does not want crutches. Related Data Home Medications ?Medication ?Instructions ?Recorded ?Confirmed ibuprofen 200 mg tablet 800 mg PO Q6H PRN 11/28/23 11/23/24 Previous Rx's ?Medication ?Instructions ?Recorded albuterol sulfate 90 mcg/actuation 2 inh inhalation Q4-6H PRN 10/19/23 aerosol inhaler shortness of breath or wheezing #8.5 grams sertraline 100 mg tablet 100 mg PO DAILY #90 tabs 10/19/23 testosterone cypionate 200 mg/mL 170 mg (0.85 mL) IM .Q10 Days #10 10/19/23 intramuscular oil mL sildenafil 100 mg tablet 100 mg PO DAILY PRN sexual 08/03/24 activity #1 tab nicotine 21 mg/24 hr daily 1 patch transdermal Q24H #28 ea 11/02/24 transdermal patch prednisone 20 mg tablet 20 mg PO BID #10 tabs 11/02/24 nicotine (polacrilex) 4 mg gum 4 mg buccal Q1-2H PRN nicotine 11/09/24 cravings #50 ea omeprazole 20 mg capsule,delayed 20 mg PO DAILY #90 caps 11/17/24 release tamsulosin 0.4 mg capsule 0.4 mg PO DAILY #90 caps 11/17/24 atorvastatin 20 mg tablet 20 mg PO DAILY #90 tabs 11/18/24 lisinopril 5 mg tablet 5 mg PO DAILY #90 tabs 11/19/24 nicotine (polacrilex) 4 mg gum 4 mg buccal Q1-2H PRN nicotine 11/23/24 cravings #300 ea tramadol 50 mg tablet 100 mg (2 x 50 mg) PO Q8H PRN pain 03/05/25 #10 tabs Allergies Allergy/AdvReac Type Severity Reaction Status Date / Time amoxicillin (From Augmentin) Allergy Intermediate Hives Verified 11/23/24 14:35 aspirin Allergy Intermediate Hives Verified 11/23/24 14:35 clavulanic acid (From Allergy Intermediate Hives Verified 11/23/24 14:35 Augmentin) lactose Allergy Mild Rash Verified 11/23/24 14:35 Review of Systems Status of ROS: Reports: 6 or more systems reviewed and unremarkable except as noted in History and below PFSH [facility] Medical History SVT (supraventricular tachycardia) ?I47.10 - Supraventricular tachycardia, unspecified (ICD-10) Palpitations ?R00.2 - Palpitations (ICD-10) Chest pain ?R07.9 - Chest pain, unspecified (ICD-10) Exposure of dental implant ?M27.69 - Other endosseous dental implant failure (ICD-10) RSV (respiratory syncytial virus infection) (10/14/23) ?B33.8 - Other specified viral diseases (ICD-10) Environmental allergies ?Z91.09 - Other allergy status, other than to drugs and biological substances (ICD-10) Erectile dysfunction ?N52.9 - Male erectile dysfunction, unspecified (ICD-10) Primary hypertension ?I10 - Essential (primary) hypertension (ICD-10) BPH (benign prostatic hyperplasia) ?N40.0 - Benign prostatic hyperplasia without lower urinary tract symptoms (ICD-10) Polycystic kidney disease ?Q61.3 - Polycystic kidney, unspecified (ICD-10) Tobacco abuse ?Z72.0 - Tobacco use (ICD-10) Major depression, recurrent ?F33.9 - Major depressive disorder, recurrent, unspecified (ICD-10) Generalized anxiety disorder ?F41.1 - Generalized anxiety disorder (ICD-10) Mixed hyperlipidemia ?E78.2 - Mixed hyperlipidemia (ICD-10) GERD (gastroesophageal reflux disease) ?K21.9 - Gastro-esophageal reflux disease without esophagitis (ICD-10) History of colonic polyps ?Z86.010 - Personal history of colonic polyps (ICD-10) Varicose veins of both lower extremities with pain ?I83.813 - Varicose veins of bilateral lower extremities with pain (ICD-10) Umbilical hernia (2015) ?K42.9 - Umbilical hernia without obstruction or gangrene (ICD-10) Klinefelter's syndrome ?Q98.4 - Klinefelter syndrome, unspecified (ICD-10) Surgical History History of surgery on lower extremity (04/25/17) ?Z98.890 - Other specified postprocedural states (ICD-10) Family History Father Heart disease Myocardial infarction Bladder cancer Paternal Grandfather Bladder cancer Other Family history of colon cancer Social History Narrative: [facility], , no kids, smoker, chews, no EtOH What is your current living situation?: I presently have a place to live Problems where you live: no known problems In the past 12 months, utilities in danger of being shut off: no In past 12 months, lack of transportation kept you from medical appts, meetings, work, or getting things needed for daily living: no In the past 12 mos, have been you worried that your food would run out before you had money to buy more?: often true In the past 12 mos, the food you bought just didn't last and you didn't have money to buy more?: often true Smoking Status: Current some day smoker What tobacco products do you use: cigarettes Do you use any of these nicotine containing products: Smokeless Tobacco Second hand tobacco smoke exposure: No How often do you have a drink containing alcohol: never How often do you have six or more drinks on one occasion: Never AUDIT-C Alcohol total score: 0 Non-prescribed substance use: denies use How often does anyone, including family, friends and others, physically hurt you : never How often does anyone, including family, friends and others, insult or talk down to you: never How often does anyone, including family, friends and others, threaten you with harm: never How often does anyone, including family, friends and others, scream or curse at you: never service: No Health Related Social Needs: food insecurity (Z59.41) Exam Narrative: Exam Narrative: Objective: Patient's vital signs look within normal limits he is alert or x3 He has right knee that shows some mild lateral joint line tenderness, proximal fibular head tenderness. No swelling or redness. He is able to passively move his knee but not full flexion or extension due to discomfort. No knee effusion noted. No redness or warmth. No swelling in the lower extremity Const: Vital Signs, click to edit/add: Vital Signs - 24 hr 12/15/24 15:15 Temperature 97.7 F Pulse Rate [Pulse Oximeter] 90 Respiratory Rate 18 Blood Pressure [Ri ght Upper Arm] 116/83 Pulse Oximetry 93 Oxygen Delivery Me thod Room Air Course Vital Signs Vital signs: Initial Vital Signs Temperature 97.7 F 12/15/24 15:15 Temperature Source Temporal Artery Scan 12/15/24 15:15 Pulse Rate 90 12/15/24 15:15 Pulse Rhythm Regular 12/15/24 15:15 Respiratory Rate 18 12/15/24 15:15 Blood Pressure 116/83 12/15/24 15:15 Blood Pressure Mean 94 12/15/24 15:15 Blood Pressure Position Sitting 12/15/24 15:15 Pulse Oximetry 93 12/15/24 15:15 Oxygen Delivery Method Room Air 12/15/24 15:15 Vital Signs Temperature 97.7 F 12/15/24 15:15 Pulse Rate 90 12/15/24 15:15 Respiratory Rate 18 12/15/24 15:15 Blood Pressure 116/83 12/15/24 15:15 Pulse Oximetry 93 12/15/24 15:15 Oxygen Delivery Method Room Air 12/15/24 15:15 Temperature 97.7 F 12/15/24 15:15 Pulse Rate 90 12/15/24 15:15 Respiratory Rate 18 12/15/24 15:15 Blood Pressure 116/83 12/15/24 15:15 Pulse Oximetry 93 12/15/24 15:15 Oxygen Delivery Method Room Air 12/15/24 15:15 Medical Decision Making MDM Narrative Medical decision making narrative: 59-year-old male who had some painful cracking sensation in his right knee area last night, continues to have range of motion deficit. I think at this point given his lapse of swelling we can simply do an x-ray, likely given a knee immo bilizer, likely a couple of days the tramadol for discomfort, and follow up with Orthopedics. May need further imaging such as MRI scanning if not improving. Would recommend ice affected areas well and light activity in light weight- bearing. Addendum 4:17 p.m.: The patient's x-ray shows no fracture but he does appear to have some calcium in a circular presentation posteriorly in his knee that certainly could be a joint mouse. The patient would give symptoms consistent with that. Will keep in a knee immobilizer, set up an orthopedic appointment, tramadol as needed, he should be off work today and then he can try work tomorrow if he can not he can will get him a note for several days off until he sees Orthopedics. Discharge Plan Discharge Clinical Impression: Acute pain of right knee Patient Disposition: Home w/ Parent or Adult Condition: Stable Additional Instructions: Recommend knee immobilizer. Patient declines crutches. Would recommend elevation, ice 15 minutes 3 4 times a day the next several days if possible. Will set her up with an appointment for Orthopedics as they may need further imaging of your knee. Will send you home with some pain medication the can get at the pharmacy. Recommend light duty work for the next week meaning no prolonged standing. Please have manager front office make an orthopedic appointment for the patient in the next 3-5 days, preferably with the physician professional nursing assistant Activity Level: Light activity Discharge Diet: Regular Prescriptions: New tramadol 50 mg tablet 100 mg PO Q8H PRN (Reason: pain) Qty: 10 0RF No Action ibuprofen 200 mg tablet 800 mg PO Q6H PRN albuterol sulfate 90 mcg/actuation HFA aerosol inhaler 2 inh inhalation Q4-6H PRN (Reason: shortness of breath or wheezing) Qty: 8.5 5RF sertraline 100 mg tablet 100 mg PO DAILY Qty: 90 3RF testosterone cypionate 200 mg/mL oil 170 mg IM .Q10 Days Qty: 10 3RF nicotine 21 mg/24 hr patch 24 hour 1 patch transdermal Q24H Qty: 28 2RF prednisone 20 mg tablet 20 mg PO BID Qty: 10 0RF nicotine (polacrilex) 4 mg gum 4 mg buccal Q1-2H PRN (Reason: nicotine cravings) Qty: 300 3RF Rx Instructions: Fruity flavor orange. sildenafil 100 mg tablet 100 mg PO DAILY PRN (Reason: sexual activity) Qty: 1 5RF nicotine (polacrilex) 4 mg gum 4 mg buccal Q1-2H PRN (Reason: nicotine cravings) Qty: 50 3RF tamsulosin 0.4 mg capsule 0.4 mg PO DAILY Qty: 90 0RF omeprazole 20 mg capsule,delayed release(DR/EC) 20 mg PO DAILY Qty: 90 0RF atorvastatin 20 mg tablet 20 mg PO DAILY Qty: 90 0RF lisinopril 5 mg tablet 5 mg PO DAILY Qty: 90 0RF Follow Up/Referrals: Rex Ch MD [Primary Care Provider] - Stand Alone Forms: [employer] Info Instructions
== END 2024-12-15 16:40 | disposition home or self-care (01) ==
PROVIDERS: Emergency Provider Family Medicine; PCP Internal Medicine
DX: M25.561 Pain in right knee (principal)
CPT/HCPCS: 73560; 99283; 99284

== ENCOUNTER 2025-04-27 13:11 | Outpatient (CLI) | payer OTHER, SELFPAY | END 2025-04-27 13:12 | disposition home or self-care (01) | LOC: NFLDREF 13:12 | PROVIDERS: PCP Internal Medicine; Visit Provider Internal Medicine | DX: I10 Essential (primary) hypertension (principal); E78.2 Mixed hyperlipidemia; Z12.5 Encounter for screening for malignant neoplasm of prostate | CPT/HCPCS: 80053; 80061; G0103 ==

== ENCOUNTER 2025-08-01 17:21 | Emergency (ER) | payer OTHER, SELFPAY ==
--- OUTSIDE RECORDS SUMMARY | 2025-08-01 17:23 | XMS_ITS | Clinical Summary ---
Author Organization [employer] [facility] Address [address] [place] [id number] Care Team Providers Care Laboratory Specialist Name Role Phone Juan Downing MD Unavailable [phone] Rex Ch MD Primary Care Provider [phone] Allergies Active Allergy Reactions Criticality Noted Date [...] HOURS BEFORE ACTIVITY 1 Tablet 4 Active medication order composer Magnesium supplement 5 Active azithromycin 250 mg tablet 5 Active testosterone cypionate (DEPO-TESTOSTERO NE) 200 mg/mL oil injectionIndicat ions:Klinefelter 's syndrome (HC) ADMINISTER 0.85 ML IN THE MUSCLE EVERY 10 DAYS. Please dispense 10 mL bottle 10 mL 3 5 Active Hospital, Clinic, or Other Facility Administered Medication Ordered Dose Route Frequency Start Date End Date Status betamethasone acet,sod phos 12 mg injection (CELESTONE SOLUSPAN)Indications:Troch anteric bursitis of left hip,Primary osteoarthritis of left hip 12 mg IArtic ONE TIME 07/14/2025 07/14/2025 Ended Active Problems Problem Noted Date Diagnosed Date [...] Encounters Date Type Department Care Team Description 07/14/2025 7:45 AM CDT Procedure Only [facility] [address] [place] [address] Moses Weaver MD Procedure (Left hip ultrasound guided inje... 07/14/2025 Travel 07/06/2025 Telephone [facility] [address] [place] [address] Moses Weaver MD Questions (CORTISONE INJECTION / HIP / LEFT ) 05/16/2025 Telephone [facility] [address] [facility] [address] [facility] [address] [place], [place] [id number] Juan Downing MD Medication Management (testosterone cypionate (DEPO-TESTOSTERONE) 200 mg/mL injection) 05/11/2025 Telephone [facility] [address] [place] [address] Moses Weaver MD RETURN CALL (BACK INJECTION ) 05/10/2025 Telephone [facility] [address] [place] [address] Moses Weaver MD Back Pain from Last 3 Months Immunizations Immunization Administration Dates Next Due COVID-19 vaccine (WyzeTalk NTTwyxt 30mcg/0.3mL) PF, MDV 01/10/2022,02/02/2021,01/09/2021 Hep B (Hepatitis [...] Father bladder cancer Heart Disease Father [place] Good [facility] Mother Cancer Paternal Grandfather bladder cancer Relation Name Status Comments Father Alive Mother Alive Paternal Grandfather Sister 1 Alive Sister 2 Alive Social History Tobacco Use Types Packs/Day Years Used Date Smoking Tobacco: Every Day Cigarettes 0.3 46.8 Started: 10/13/1978 Smokeless Tobacco: Current Chew Tobacco [...] on file Legal Sex Male 5:58 AM [employer] Gender Identity Not on file Sexual Orientation Not on file 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 on file Not on file Not on file Obstetrics History Last Filed Vital Signs Vital Sign Reading Time Taken Comments Blood Pressure 116/80 07/14/2025 7:23 AM CDT Pulse 78 07/14/2025 7:23 AM CDT Temperature 36.7 C (98 F) 07/14/2025 7:23 AM CDT Respiratory Rate 22 01/29/2025 12:2 0 PM CDT Oxygen Saturation 97% 07/14/2025 7:23 AM CDT Inhaled Oxygen Concentration - - Weight 146.6 kg (323 lb 3.2 oz) 025 12:53 PM CDT shoes on Height 190.5 cm (6' 3) 04/29/2023 3:29 PM CDT Body Mass Index 40.4 04/29/2023 3:29 PM CDT Plan of Treatment [...] 04/29/2024 04/29/2023, 10/01/2022, 09/27/2021, Additional history exists Colonoscopy through age 75 05/29/2025 05/29/2015, COVID-19 vaccine series (2024- season) 2025 07/10/2022, 01/10/2022, 02/02/2021, Additional history exists Influenza Vaccine (#1) 2025 , 07/08/2023, 07/10/2022, Additional history exists Lipids for age 45-75 10/01/2027 10/01/2022, 03/26/2021, 11/06/2019, Additional history exists Tetanus booster 10/01/2032 10/01/2022, 12/10/2010, 08/02/2008, Additional history exists RSV vaccine for adults or (1 - 1-dose 75+ series) 2042 Hepatitis B series for 19+ Completed 04/10/2021, Goals Goal Patient Goal Type Associated Problems Recent Progress Patient-Stated? Author BLOOD PRESSURE - Maintains BP less than 140/90 Blood Pressure Mauricio Ladd MD Procedures Procedure Name Priority Date/Time Associated Diagnosis Comments BEDSIDE US STUDY ARCHIVE Routine 07/14/2025 9:53 AM CDT Trochanteric bursitis of left hip Primary osteoarthritis of left hip LIPID PANEL W REFLEX MEASURED LDL Routine 10/01/2022 2:49 PM [employer] Hyperlipidemia LDL goal <100 SCAN-COLONOSCOPY 05/29/2015 12:0 0 PM CDT from Last 3 Months or Most Recently Relevant to Health Maintenance Results * BEDSIDE US STUDY ARCHIVE (07/14/2025 9:53 AM CDT) Narrative [facility] - 07/14/2025 9:53 AM CDT The patient was seen for ultrasound guided injection by Dr. Moses Weaver. Ultrasound was not used for diagnostic purposes, but to guide the needle placement and document the position of the injection. See patient's EPIC encounter for the detail of the procedure; see SUSAN for saved images of the injection. us Moses Weaver MD PROCEDURE ORD Final Resu lt * (ABNORMAL) LIPID PANEL W REFLEX MEASURED LDL (10/01/2022 2:49 PM [employer]) CHOLESTEROL,TOTAL 159 100 - 199 mg/dL 10/03/2022 6:08 PM [employer] [facility] TRIGLYCERIDES 121 <150 mg/dL 10/03/2022 6:08 PM [employer] [facility] [employer] [facility] HDL CHOLESTEROL 39(L) >40 mg/dL 6:08 PM [employer] [facility] [employer] [facility] NON-HDL CHOLESTEROL 120 <145 mg/dl 10/03/2022 6:08 PM [employer] [facility] [employer] [facility] CHOL/HDL RATIO 4.08 <4.50 10/03/2022 6:08 PM [employer] [facility] [employer] [facility] LDL CHOLESTEROL 96 <=130 mg/dL 10/03/2022 6:08 PM [employer] [facility] VLDL CHOLESTEROL 24 <=30 mg/dL 10/03/2022 6:08 PM [employer] [facility] [employer] [facility] PROVIDER ORDERED STATUS RANDOM 10/03/2022 6:08 PM [employer] [facility] [employer] [facility] Blood BLOOD SPECIMEN / Unknown Venipuncture / Unknown 10/01/2022 2:49 PM [employer] 10/01/2022 2:49 PM [employer] us Chandan Reddy MD CHEMISTRY Final Re sult [facility] [address] [place] [address], [place] * SCAN-COLONOSCOPY (05/29/2015 12:00 PM CDT) us Scanner OTHER Final Result from Last 3 Months or Most Recently Relevant to Health Maintenance Insurance [facility] [employer] [facility] EVELIN GUNDERSON [facility] [employer] [facility] Advance Directives * Full Code (Latest Code Status on File) Date Activated Date Inactivated Comments 04/25/2017 6:34 AM 04/25/2017 12:04 PM Care Teams Laboratory Specialist Relationship Specialty Start Date End Date Rex Ch MD [address] [place] [address] PCP - General Internal Medicine 06/30/24 Juan Downing MD [address] [facility] [address] [place] [address] Endocrinology 01/07/23
[2025-08-01 17:24] VITALS: BP 151/91; PULSE 94; RESP 18; TEMP 36.6; O2SAT 97
--- NOTE | 2025-08-01 17:33 | CRLHL7_ITS ---
For Patients: As a result of the Century Cures Act, medical imaging exams and procedure reports are released immediately into your electronic medical record. You may view this report before your referring provider. If you have questions, please contact your health care provider. INDICATION: Head injury. TECHNIQUE: Noncontrast CT of the head with multiplanar reconstruction utilizing bone and soft tissue algorithms. COMPARISON: None available. FINDINGS: No acute intracranial hemorrhage. The lucas-white matter interface is maintained. The ventricles are normal in size. No abnormal extra-axial fluid collection is identified. Streak artifact is noted at the left frontal convexity. No calvarial fracture. Unremarkable orbits. Mild mucosal thickening within the ethmoid sinuses. IMPRESSION: No acute intracranial abnormality. Please note that all CT scans at this facility use dose modulation, iterative reconstruction, and/or weight-based dosing when appropriate to reduce radiation dose to as low as reasonably achievable. Dictated by Andrei Cruz MD @ 08/01/2025 6:02:19 PM (Electronically Signed)
--- NOTE | 2025-08-01 17:39 | ED.HEATRA ---
HPI - Head Injury General Date Seen: 08/01/25 Chief complaint: Head Injury/Pain Stated complaint: Head trauma last Friday, needs scan Time Seen by Provider: 08/01/25 17:39 Source: patient, RN notes reviewed and old records reviewed Mode of arrival: ambulatory Limitations: no limitations History of Present Illness HPI Narrative: Faustino is a very pleasant 60-year-old gentleman with history of diabetes, SVT, hypertension, Klinefelter's syndrome who comes to the emergency room from urgent care for head pain after head injury. Last FridayJuly 26 Faustino was cleaning the OR. Was walking backwards and hit the back of his head posterior parietal on a metal bar suspended from the ceiling. He did not get knocked out but states he had significant pain and it was so jarring that he has even had jaw pain. He notes that he had some nausea but no vomiting. No other injury and he did not fall. 48 hours later on July 28 he began experiencing head pain in that region which was new. It was so bad that it does not allow him to sleep. He presented today to urgent care as he is also having some eye blurriness today. He has tingling in his left leg which is not new. Notes some tingling on his right arm while a at rest at night. Hanging his arm off the bed resolved the symptoms. No vomiting. Denies neck pain. No loss of strength. Denies double vision. Related Data Previous Rx's ?Medication ?Instructions ?Recorded testosterone cypionate 200 mg/mL 170 mg (0.85 mL) IM .Q10 Days #10 10/19/23 intramuscular oil mL metformin 500 mg tablet 500 mg PO BID #60 tabs 05/16/25 atorvastatin 20 mg tablet 20 mg PO DAILY #90 tabs 06/06/25 lisinopril 5 mg tablet 5 mg PO DAILY #90 tabs 06/06/25 omeprazole 20 mg capsule,delayed 20 mg PO DAILY #90 caps 06/06/25 release tamsulosin 0.4 mg capsule 0.4 mg PO DAILY #90 caps 06/06/25 sildenafil 100 mg tablet (Viagra) 100 mg PO QDAY PRN sexual activity 07/08/25 #1 tab semaglutide 0.25 mg or 0.5 mg (2 0.25 mg (0.368 mL) subcut QWEEK #3 07/12/25 mg/3 mL) subcutaneous pen injector mL (Ozempic) sertraline 100 mg tablet 50 mg (1/2 x 100 mg) PO DAILY #90 07/29/25 tabs Allergies Allergy/AdvReac Type Severity Reaction Status Date / Time amoxicillin (From Augmentin) Allergy Intermediate Hives Verified 08/01/25 17:32 aspirin Allergy Intermediate Hives Verified 08/01/25 17:32 clavulanic acid (From Allergy Intermediate Hives Verified 08/01/25 17:32 Augmentin) lactose Allergy Mild Rash Verified 08/01/25 17:32 Review of Systems Status of ROS: Reports: 10 or more systems reviewed and unremarkable except as noted in History and below Const: Denies: fever or chills Eyes: Reports: blurry vision and light sensitivity; Denies: eye discharge or seeing flashes ENMT: Denies: throat pain, neck pain, throat swelling or nasal congestion Cardio: Reports: lightheadedness; Denies: chest pain, swelling of feet/ankles or shortness of breath with exertion Resp: Denies: shortness of breath or cough GI: Denies: abdominal pain or nausea Musculo: Denies: back pain, neck pain or extremity pain Neuro: Reports: headache, lack of coordination and dizziness; Denies: numbness in extremities or slurred speech Allergy/Immuno: Denies: throat swelling [facility] Medical History Closed head injury with concussion ?S06.0XAA - Concussion with loss of consciousness status unknown, initial encounter (ICD-10) Colon polyps ?K63.5 - Polyp of colon (ICD-10) Back pain ?M54.9 - Dorsalgia, unspecified (ICD-10) Diabetes ?E11.9 - Type 2 diabetes mellitus without complications (ICD-10) SVT (supraventricular tachycardia) ?I47.10 - Supraventricular tachycardia, unspecified (ICD-10) RSV (respiratory syncytial virus infection) (10/14/23) ?B33.8 - Other specified viral diseases (ICD-10) Environmental allergies ?Z91.09 - Other allergy status, other than to drugs and biological substances (ICD-10) Erectile dysfunction ?N52.9 - Male erectile dysfunction, unspecified (ICD-10) Primary hypertension ?I10 - Essential (primary) hypertension (ICD-10) BPH (benign prostatic hyperplasia) ?N40.0 - Benign prostatic hyperplasia without lower urinary tract symptoms (ICD-10) Polycystic kidney disease ?Q61.3 - Polycystic kidney, unspecified (ICD-10) Tobacco abuse ?Z72.0 - Tobacco use (ICD-10) Major depression, recurrent ?F33.9 - Major depressive disorder, recurrent, unspecified (ICD-10) Generalized anxiety disorder ?F41.1 - Generalized anxiety disorder (ICD-10) Mixed hyperlipidemia ?E78.2 - Mixed hyperlipidemia (ICD-10) GERD (gastroesophageal reflux disease) ?K21.9 - Gastro-esophageal reflux disease without esophagitis (ICD-10) History of colonic polyps ?Z86.010 - Personal history of colonic polyps (ICD-10) Varicose veins of both lower extremities with pain ?I83.813 - Varicose veins of bilateral lower extremities with pain (ICD-10) Umbilical hernia (2015) ?K42.9 - Umbilical hernia without obstruction or gangrene (ICD-10) Klinefelter's syndrome ?Q98.4 - Klinefelter syndrome, unspecified (ICD-10) Surgical History History of surgery on lower extremity (04/25/17) ?Z98.890 - Other specified postprocedural states (ICD-10) Family History Father Heart disease Myocardial infarction Bladder cancer Paternal Grandfather Bladder cancer Other Family history of colon cancer Social History Narrative: [facility], , no kids, smoker, chews, no EtOH What is your current living situation?: I presently have a place to live Problems where you live: unable to answer In the past 12 months, utilities in danger of being shut off: no In past 12 months, lack of transportation kept you from medical appts, meetings, work, or getting things needed for daily living: yes In the past 12 mos, have been you worried that your food would run out before you had money to buy more?: often true In the past 12 mos, the food you bought just didn't last and you didn't have money to buy more?: sometimes true Smoking Status: Current some day smoker What tobacco products do you use: cigarettes Do you use any of these nicotine containing products: Smokeless Tobacco Second hand tobacco smoke exposure: No How often do you have a drink containing alcohol: never How often do you have six or more drinks on one occasion: Never AUDIT-C Alcohol total score: 0 Non-prescribed substance use: denies use How often does anyone, including family, friends and others, physically hurt you: never How often does anyone, including family, friends and others, insult or talk down to you: never How often does anyone, including family, friends and others, threaten you with harm: never How often does anyone, including family, friends and others, scream or curse at you: sometimes service: No Health Related Social Needs: food insecurity (Z59.41), transportation insecurity (Z59.82) and Other personal risk factors, not elsewhere classified (Z91.89) Exam Narrative: Exam Narrative: Alert and oriented. Seems fatigued but otherwise normal mentation and speech. EOM is full. How nystagmus. Visual holder intact. Head is without any ecchymosis abrasion or laceration. No significant tenderness put elicited. Her pain with palpation down the midline cervical spine. Upper extremity strength and motor intact. Heart with regular rate and rhythm and lungs are clear. Does smell of tobacco. Lower extremities without edema. Moving extremities without difficulty. Const: Vital Signs, click to edit/add: Vital Signs - 24 hr 08/01/25 17:24 08/01/25 18:15 Temperature 97.8 F Pulse Rate 77 Pulse Rate [Pulse Oximeter] 94 Respiratory Rate 18 Blood Pressure [Ri ght Upper Arm] 151/91 H Pulse Oximetry 97 95 Oxygen Delivery Me thod Room Air Room Air Documenting provider has reviewed patient's vital signs: yes Eye: Direct Ophthalmoscopy: photophobia Course Course ED Course: Differential diagnosis includes but is not limited to concussion, intracranial bleed, intraparenchymal bleed. No evidence of cervical spine injury and there was no fall. Recommend noncontrast CT at this time. Reevaluation(s) Reevaluation #1: Remains stable emergency Vital Signs Vital signs: Initial Vital Signs Temperature 97.8 F 08/01/25 17:24 Temperature Source Temporal Artery Scan 10/20/25 17:24 Pulse Rate 94 08/01/25 17:24 Respiratory Rate 18 08/01/25 17:24 Blood Pressure 151/91 H 08/01/25 17:24 Blood Pressure Mean 111 H 08/01/25 17:24 Blood Pressure Position Sitting 08/01/25 17:24 Pulse Oximetry 97 08/01/25 17:24 Oxygen Delivery Method Room Air 08/01/25 17:24 Vital Signs Temperature 97.8 F 08/01/25 17:24 Pulse Rate 94 08/01/25 17:24 Respiratory Rate 18 08/01/25 17:24 Blood Pressure 151/91 H 08/01/25 17:24 Pulse Oximetry 97 08/01/25 17:24 Oxygen Delivery Method Room Air 08/01/25 17:24 Temperature 97.8 F 08/01/25 17:24 Pulse Rate 77 08/01/25 18:15 Respiratory Rate 18 08/01/25 17:24 Blood Pressure 151/91 H 08/01/25 17:24 Pulse Oximetry 95 08/01/25 18:15 Oxygen Delivery Method Room Air 08/01/25 18:15 MDM - Head Injury MDM Narrative Medical decision making narrative: 1. Concussion-head CT reassuring with no evidence of skull fracture intracranial bleed subdural hematoma. Patient notes that he is going to take the rest of the night off. If he feels well tomorrow he will return to work but I have told him if he continues to feel this way he really needs to take some time off and rest. I would like him to follow up with his primary MD Dr. Ch. However he has the onset of other symptoms such as chest pain, vomiting, worsening symptoms would have him return to the emergency room. He may need to attend to concussion Clinic with physical therapy in order for it to improve if he has ongoing symptoms. 2. Disposition-home at this time. Return to the ER for worsening symptoms. Medical Records Attestation: I reviewed the patient's medical records. Imaging Data CT scan - head: Attestation: I have reviewed the pertinent imaging results. My impression: I do not note any acute bleed or skull fracture Radiologist's impression: No acute intracranial hemorrhage. The lucas-white matter interface is maintained. The ventricles are normal in size. No abnormal extra-axial fluid collection is identified. Streak artifact is noted at the left frontal convexity. No calvarial fracture. Unremarkable orbits. Mild mucosal thickening within the ethmoid sinuses. IMPRESSION: No acute intracranial abnormality. Discharge Plan Discharge Clinical Impression: Concussion Patient Disposition: Home, Self-Care Condition: Unchanged Instructions: Concussion (ED) Additional Instructions: Follow-up with your primary MD for recheck. Recommend rest if you continue to have symptoms. Return as needed. Prescriptions: No Action testosterone cypionate 200 mg/mL oil 170 mg IM .Q10 Days Qty: 10 3RF metformin 500 mg tablet 500 mg PO BID Qty: 60 3RF omeprazole 20 mg capsule,delayed release(DR/EC) 20 mg PO DAILY Qty: 90 3RF tamsulosin 0.4 mg capsule 0.4 mg PO DAILY Qty: 90 3RF atorvastatin 20 mg tablet 20 mg PO DAILY Qty: 90 3RF lisinopril 5 mg tablet 5 mg PO DAILY Qty: 90 3RF sildenafil [Viagra] 100 mg tablet 100 mg PO QDAY PRN (Reason: sexual activity) Qty: 1 3RF Rx Instructions: administer 30 minutes to 4 hours before activity Ozempic 0.25 mg or 0.5 mg (2 mg/3 mL) pen injector 0.25 mg subcut QWEEK Qty: 3 0RF Rx Instructions: for 4 weeks; then increase to 0.5 mg every week sertraline 100 mg tablet 50 mg PO DAILY Qty: 90 3RF Follow Up/Referrals: Rex Ch MD [Primary Care Provider, Internal Medicine] Stand Alone Forms: [employer] Info Instructions
[2025-08-01 18:15] VITALS: PULSE 77; O2SAT 95
[2025-08-01 18:30] VITALS: PULSE 77; O2SAT 95
[2025-08-01 18:31] VITALS: BP 121/89; PULSE 77; RESP 18; O2SAT 94
[2025-08-01 18:45] VITALS: PULSE 74; O2SAT 97
== END 2025-08-01 19:25 | disposition home or self-care (01) ==
PROVIDERS: Emergency Provider Family Medicine; PCP Internal Medicine
DX: S06.0X0A Concussion without loss of consciousness, initial encounter (principal); W22.8XXA Striking against or struck by other objects, initial encounter; Y99.0 Civilian activity done for income or pay
CPT/HCPCS: 70450; 99283; 99284